=== PATIENT | female | born 1975 ===

== ENCOUNTER 2025-01-14 05:15 | Day surgery (SDC) | payer OTHER ==
[2025-01-07 08:29] VITALS: BP 140/90
[2025-01-07 09:00] LABS: BASO % 1.4 % (0.1-1.2); EOS # 0.18 (0.04-0.54); EOS % 2.4 % (0.7-7.0); HEMATOCRIT 39.3 % (34.1-44.9); HEMOGLOBIN 12.6 g/dL (11.2-15.7); LYMPH # 2.67 (1.18-3.74); LYMPH % 36.3 % (19.3-53.1); MEAN CORPUSCULAR HEMOGLOBIN 27.2 pg (25.6-32.2); MONO # 0.38 (0.24-0.82); MONO % 5.2 % (4.7-12.5); NEUT # 4.02 (1.56-6.13); NEUT % 54.6 % (34.0-71.1); PLATELET COUNT 187 K/uL (163-369); RED BLOOD COUNT 4.64 M/uL (3.93-5.22); RED CELL DISTRIBUTION WIDTH 15.1 % (11.6-14.4)
[2025-01-07 09:53] LABS: INR 0.94; PARTIAL THROMBOPLASTIN TIME 23.1 SECONDS (22.0-34.0); PROTHROMBIN TIME 10.3 SECONDS (9.0-11.5)
[2025-01-07 10:07] LABS: ALBUMIN 3.6 gm/dL (3.4-5.0); BILIRUBIN TOTAL 0.4 mg/dL (0.3-1.2); CALCIUM 8.8 mg/dL (8.5-10.1); CREATININE SERUM 0.69 mg/dL (0.55-1.02); GFR 91.19; GLOBULINA 4.2 G/DL (2.4-3.5); POTASSIUM 4.29 mEq/L (3.5-5.1); TOTAL PROTEIN 7.8 gm/dL (6.4-8.2)
[2025-01-07 10:26] LABS: PH,URINE 7.5 (5.0-8.0); URINE APPEARANCE Clear; URINE BILIRRUBIN Negative (NEGATIVE); URINE BLOOD Moderate; URINE COLOR Yellow; URINE GLUCOSE Negative (NEGATIVE); URINE KETONE Negative (NEGATIVE); URINE LEUKOCYTE Negative; URINE NITRATE Negative; URINE PROTEIN Negative (NEGATIVE); URINE UROBILINOGEN 0.2 E.U./dl
[2025-01-07 10:31] LABS: URINE BACTERIA 13.4 uL (0.0-1933); URINE EPITHELIAL CELLS 1.8 uL (0.0-38.8); URINE RBC 284.4 uL (0.0-20.8); URINE WBC 2.2 uL (0.0-23.2)
[~2025-01-14] VITALS: Ht 142.2 cm; Wt 55.8 kg
[2025-01-14] MEDS ORDERED: CEFAZOLIN SODIUM 1,000 MG VIAL ONE (06:52)
[2025-01-14] MEDS ORDERED: BUPIVACAINE HCL/MPF 0.5% 30ML VIAL ONE (08:00)
[2025-01-14] MEDS ORDERED: MORPHINE SULFATE 4 MG/ML VIAL IV ONE (10:14)
[2025-01-14] MEDS ORDERED: ONDANSETRON HCL 2 MG/ML VIAL ONE (10:18)
[2025-01-14] MEDS ORDERED: ONDANSETRON HCL 2 MG/ML VIAL IV ONE (10:20)
== END 2025-01-14 11:25 | disposition home or self-care (01) ==
LOC: CIR.AMB 05:15
PROVIDERS: ATTEND Orthopaedic Surgery Hand Surgery
DX: M77.11 Lateral epicondylitis, right elbow (principal); Z88.5 Allergy status to narcotic agent; Z88.6 Allergy status to analgesic agent